=== PATIENT | female | born 2000 | race African-American/Black ===

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

== ENCOUNTER 2021-01-21 10:09 | Inpatient (IN) ==
[2021-01-21] MEDS ORDERED: Buffered Lidocaine 1% SYRIN 1 ml INTRADERM ONE (11:02)
[2021-01-21] MEDS ORDERED: Lactated Ringers 1000 ml BAG 1,000 ML IV ONE (11:02)
[2021-01-21 11:37] LABS: Urine Benzodiazepine Screen None Detected (None Detect); Urine Cannabinoids Screen None Detected (None Detect); Urine Opiates Screen None Detected (None Detect)
[2021-01-21] MEDS ORDERED: Lactated Ringers 1000 ml BAG 1,000 ML IV SCH (12:00)
[2021-01-21 12:41] LABS: Rapid COVID-19 Molecular Undetected (Undetected)
[2021-01-21] MEDS ORDERED: Dinoprostone 10 MG VAG.SUPP VAGINAL ONE (19:04)
[2021-01-22] MEDS ORDERED: Promethazine INJ(RESTRICTED) 25 MG/ML 1 ml VIAL IV ONE (04:09)
[2021-01-22] MEDS ORDERED: Nalbuphine 10 MG/ML 1 ML VIAL IV ONE (04:09)
[2021-01-22 04:24] LABS: ABS Basophils 0.1 10^3/ul (0-0.2); ABS Eosinophils 0.1 10^3/ul (0-0.6); ABS Monocytes 0.7 10^3/ul (0-0.8); ABS Neutrophils 8.4 10^3/ul (1.5-7.7); Eosinophil % 1.2 %; Hematocrit 35 % (35-47); Hemoglobin 11.5 g/dL (12.0-16.0); Mean Corpuscular HGB Conc 33 g/dL (31-36); Mean Corpuscular Hemoglobin 26 pg (27-31); Mean Corpuscular Volume 81 fL (80-97); Mean Platelet Volume 9.8 fL (7.4-10.4); Platelet Count 191 10^3/uL (150-450); Red Blood Count 4.33 10^6 /uL (3.70-4.87); Red Cell Distribution Width 13 % (10-15); White Blood Count 11.3 10^3/uL (3.5-10.8)
[2021-01-22] MEDS ORDERED: Ondansetron 4 mg VIAL 2 MG/ML 2 ml VIAL IV PRN (08:56)
[2021-01-22] MEDS ORDERED: OBEPIDURAL 250 ML EPIDURAL ONE (09:02)
[2021-01-22] MEDS ORDERED: EPHEDrine (Pressors) 50 MG/ML VIAL IV PUSH PRN ×2 (09:35)
[2021-01-22] MEDS ORDERED: Lactated Ringers 1000 ml BAG 1,000 ML IV ONE (09:35)
[2021-01-22] MEDS ORDERED: Sodium Citrate/Citric Acid LIQ 15 ML UDC PO PRN (09:35)
[2021-01-22] MEDS ORDERED: Phenylephrine 40 mcg/mL 10mL (400mcg) SYRINGE IV PUSH PRN ×2 (09:35)
[2021-01-22] MEDS ORDERED: OBEPIDURAL 250 ML EPIDURAL SCH (10:00)
[2021-01-22] MEDS ORDERED: Lactated Ringers 1000 ml BAG 1,000 ML IV SCH ×2 (10:00→14:00)
[2021-01-22] MEDS ORDERED: Oxytocin in LR 20 UNITS/1,000 ML BAG IVPB ONE (13:26)
[2021-01-22] MEDS ORDERED: Methylergonovine 0.2 mg AMPULE 1 ml AMP ONE (13:43)
[2021-01-22] MEDS ORDERED: Dibucaine 1% OINT 28.35 GM TUBE PR PRN (13:48)
[2021-01-22] MEDS ORDERED: Witch Hazel PAD JAR TOPICAL PRN (13:48)
[2021-01-22] MEDS ORDERED: Methylergonovine 0.2 mg AMPULE 1 ml AMP IM ONE (13:49)
[2021-01-22] MEDS ORDERED: Oxytocin in LR 20 UNITS/1,000 ML BAG IVPB SCH (14:00)
[2021-01-22] MEDS ORDERED: Ondansetron ODT 4 mg TAB 4 MG TAB ONE (15:28)
[2021-01-23 06:51] LABS: ABS Basophils 0.1 10^3/ul (0-0.2); ABS Eosinophils 0.1 10^3/ul (0-0.6); ABS Lymphocytes 1.6 10^3/ul (1.0-4.8); ABS Neutrophils 8.4 10^3/ul (1.5-7.7); Eosinophil % 0.9 %; Hematocrit 31 % (35-47); Hemoglobin 10.4 g/dL (12.0-16.0); Lymphocyte % 14.6 %; Mean Corpuscular HGB Conc 34 g/dL (31-36); Mean Corpuscular Hemoglobin 27 pg (27-31); Mean Corpuscular Volume 81 fL (80-97); Mean Platelet Volume 9.7 fL (7.4-10.4); Platelet Count 155 10^3/uL (150-450); Red Blood Count 3.85 10^6 /uL (3.70-4.87); Red Cell Distribution Width 13 % (10-15); White Blood Count 11.3 10^3/uL (3.5-10.8)
[2021-01-23] MEDS ORDERED: RHO D Immune Globulin (HUMAN) 300 MCG = 1,500 I.U. INJ IM ONE (18:23)
[2021-01-24 07:53] VITALS: BP 125/70
[2021-01-24] MEDS ORDERED: Flu vaccine *QUAD* 2021-22* 0.5 ML SYRINGE IM ONE (09:00)
== END 2021-01-24 11:22 | disposition home or self-care (01) | DRG 542 ==
LOC: MCHOBOUT 10:09 → MCHOB 11:01
PROVIDERS: ADMIT Midwife; ATTEND Midwife